=== PATIENT | male | born 1955 | race Two or more races ===

== ENCOUNTER → 2017-03-17 | Day surgery (SDC) | payer OTHER ==
[~2017-03-17] MED LIST: AMLODIPINE BESYL5 MG PO; ATORVASTATIN CA20 MG PO; ENALAPRIL MALEA10 MG PO; GABAPENTIN300 MG PO; ISONIAZID300 MG PO; JANUVIA PO; OMEPRAZOLE20 M2 PO
--- NOTE | ~2017-03-17 | OR ---
Unit #: [id number] #: [id number] Patient: EDWIN PITTMAN [id number] [address] [address] [id number] O MR#: [id number] NAME: EDWIN PITTMAN ROOM: Date of Procedure: 03/17/2017 Admission Date: 03/17/2017 Surgeon: Amado Duarte M.D. : 1955 Attending Physician: Amado Duarte M.D. Primary Care Physician: Abimbola Bryant M.D. OPERATIVE REPORT PROCEDURE PERFORMED Esophagogastroduodenoscopy with biopsy. INDICATIONS FOR PROCEDURE The patient with GERD symptoms, intermittent dysphagia, undergoing evaluation with upper endoscopy. MEDICATIONS Monitored anesthesia. POSTOPERATIVE FINDINGS 1. Small hiatal hernia. 2. Mild gastritis. Biopsies taken. 3. Normal duodenum and distal duodenum. PLAN PPIs to continue. DESCRIPTION OF PROCEDURE The patient was explained of the procedure, risks, and benefits along with the risks and benefits of anesthesia. He was brought to the endoscopy room. Propofol anesthesia was given. Bite block was placed. The scope was passed down the mouth into esophagus, stomach, duodenum, and distal duodenum. Findings as described. Biopsies taken. Gently, I pulled it out of the patient's mouth. He tolerated it well. Dictated by... Emilio Austin/teri TD: 03/17/2017 17:22 JOB #: [id number] Unit #: [id number] #: [id number] Patient: EDWIN PITTMAN OPERATIVE REPORT Page 1 of 1 X Amado Duarte MD X PROCEDURE OPERATIVE NOTE
== END | disposition home or self-care (01) ==
LOC: COPS 07:30
DX: K29.50 Unspecified chronic gastritis without bleeding (principal); K44.9 Diaphragmatic hernia without obstruction or gangrene; E11.9 Type 2 diabetes mellitus without complications; I10 Essential (primary) hypertension; E78.5 Hyperlipidemia, unspecified; Z79.899 Other long term (current) drug therapy
CPT/HCPCS: 82947; 88305; 88312